=== PATIENT | male | born 1960 | race Caucasian/White ===

== ENCOUNTER → 2017-01-15 | Outpatient (CLI) | payer OTHER ==
[~2017-01-15] MED LIST: ACETAMINOPHEN PO; ALBUTEROL17 GM INH; AMOXICILLIN875 MG PO; ASPIRIN81 M1 PO; DOXYCYCLINE HY100 M1 PO; HYCODAN60 ML 5MG/ PO; HYDROCHLOROTHIA25 MG PO; LISINOPRIL10 MG PO; METFORMIN HCL500 M1 PO; NORCO 5/325 TAB1 TAB PO; PREDNISONE PO; SPIRIVA18 MCG INH; TYLOX1 CAP 5/50 PO; VASOTEC10 MG PO
--- NOTE | ~2017-01-15 | US77 ---
[facility] A Service of [facility] RADIOLOGY TEXT RESULTS PATIENT: MORRIS ALDRIDGE LOCATION: [facility] : 60 UNIT #: [id number] AGE: [address]: Quique Gagnon MD SEX: M ORDER DR: [id number] [address] [address] [id number] O MR#: [id number] Acc #: [id number] NAME: MORRIS ALDRIDGE : 1960 SEX: M STUDY DATE/TIME: 01/15/2017 15:22 UNIT: [facility] ROOM: STUDY DESCRIPTION: US Kidney Bilateral Complete Attending Physician: Quique Gagnon M.D. Referring Physician: Quique Gagnon M.D. Ordering Physician: Quique Gagnon M.D. Primary Care Physician: Socorro Rizzo M.D. MEDICAL IMAGING REPORT This report is preliminary unless electronic signature is present EXAM Renal ultrasound INDICATION Renal cell carcinoma post right nephrectomy. Bladder cancer diagnosed 2016. PROCEDURE Pascual-scale and Doppler imaging kidneys and bladder. COMPARISON None. FINDINGS Previous right nephrectomy. No obvious abnormal soft tissue in the right nephrectomy bed. Unremarkable bladder. Left kidney measures 13.1 cm and is normal. IMPRESSION 1. Previous right nephrectomy. 2. Normal appearance of the left kidney. Dictated by... Tk Gonzalez M.D. THIS IS AN ELECTRONICALLY VERIFIED REPORT Tk Gonzalez M.D. at 01/17/2017 6:52 AM EED/aa TD: 01/16/2017 10:28 JOB #: [id number] [facility] A Service [facility] RADIOLOGY TEXT RESULTS PATIENT: MORRIS ALDRIDGE LOCATION: [facility] : 60 UNIT #: [id number] AGE: [address]: Quique Gagnon MD SEX: M ORDER DR: MEDICAL IMAGING REPORT Page 1 of 1 COPY
--- NOTE | ~2017-01-15 | CR63 ---
[facility] A Service of [facility] RADIOLOGY TEXT RESULTS PATIENT: MORRIS ALDRIDGE LOCATION: [facility] : 60 UNIT #: [id number] AGE: [address]: Quique Gagnon MD SEX: M ORDER DR: [id number] [place] [address] [facility]. [place], [place] [address] [id number] O MR#: [id number] Acc #: [id number] NAME: MORRIS ALDRIDGE : 1960 SEX: M STUDY DATE/TIME: 01/15/2017 15:50 UNIT: [facility] ROOM: STUDY DESCRIPTION: CR Chest 2 View Attending Physician: Quique Gagnon M.D. Referring Physician: Quique Gagnon M.D. Ordering Physician: Quique Gagnon M.D. Primary Care Physician: Socorro Rizzo M.D. MEDICAL IMAGING REPORT This report is preliminary unless electronic signature is present EXAM Two-view chest, 01/15/2017 INDICATIONS A 56-year-old male with a history of renal malignancy, mid chest pain and right arm pain for 2 weeks. Tobacco abuse for years. TECHNIQUE Two views of the chest were performed. COMPARISON 09/26/2015 FINDINGS There is mild pulmonary hyperinflation. Cardiac silhouette within normal limits. Vascularity unremarkable. There is no effusion dense consolidation or pneumothorax. Mild thoracic spondylosis. IMPRESSION Mild pulmonary hyperinflation; otherwise, negative two-view chest. Dictated by... Yomi Mckeon M.D. THIS IS AN ELECTRONICALLY VERIFIED REPORT Yomi Mckeon M.D. at 01/16/2017 5:04 PM Faib TD: 01/16/2017 11:42 JOB #: [id number] [facility] A Service [facility] RADIOLOGY TEXT RESULTS PATIENT: MORRIS ALDRIDGE LOCATION: [facility] : 60 UNIT #: [id number] AGE: [address]: Quique Gagnon MD SEX: M ORDER DR: MEDICAL IMAGING REPORT Page 1 of 1 COPY
[2017-01-15 16:05] LABS: ALBUMIN SERUM 3.9 g/dL (3.5-5.0); BILIRUBIN,TOTAL 0.1 mg/dL (0.2-2.0); BUN/CREATININE RATIO 19.23; CALCIUM SERUM 8.9 mg/dL (8.4-10.2); CREATININE SERUM 1.3 mg/dL (0.6-1.4); POTASSIUM 4.6 mmol/L (3.5-5.1); PROTEIN TOTAL SERUM 6.8 g/dL (6.0-8.3)
== END | disposition home or self-care (01) ==
LOC: CGUS 14:55
PROVIDERS: Urology
DX: Z08 Encounter for follow-up examination after completed treatment for malignant neoplasm (principal); J98.4 Other disorders of lung; Z85.528 Personal history of other malignant neoplasm of kidney; Z90.5 Acquired absence of kidney
CPT/HCPCS: 36415; 71020; 76770; 80053

== ENCOUNTER 2017-06-21 14:09 | Emergency (ER) | payer OTHER ==
[~2017-06-21] VITALS: Ht 185.4 cm; Wt 130.6 kg
--- NOTE | ~2017-06-21 | CT4 ---
[facility] A Service of [facility] RADIOLOGY TEXT RESULTS PATIENT: MORRIS ALDRIDGE LOCATION: [facility] : 60 UNIT #: [id number] AGE: [address]: Regla Rose MD SEX: M ORDER DR: [id number] [facility] [address] [facility]. [place], [place] [address] [id number] P MR#: [id number] Acc #: [id number] NAME: MORIRS ALDRIDGE : 1960 SEX: M STUDY DATE/TIME: 06/21/2017 18:56 UNIT: [facility] ROOM: STUDY DESCRIPTION: CT Abd and Pelv Wo Cont Attending Physician: Regla Rose M.D. Ordering Physician: Regla Rose M.D. Primary Care Physician: Socorro Rizzo M.D. MEDICAL IMAGING REPORT This report is preliminary unless electronic signature is present EXAM CT of the abdomen and pelvis without contrast, 06/21/[address] of the abdomen and pelvis with and without contrast, 02/02/2016 HISTORY Abdominal and flank pain for 3 days. Pain radiates into the back on both sides. History of bladder and kidney cancer. TECHNIQUE CT of the abdomen and pelvis were obtained without IV or oral contrast in the axial plane followed by sagittal and coronal reformates. This CT exam was performed with one or more of the following radiation dose reduction techniques: automatic exposure control, adjustment of mA and/or kV according to patient size, and iterative reconstruction. FINDINGS LOWER CHEST: Lungs are well aerated. Heart is of normal size. ABDOMEN: There is focal area of ill-defined isodensity in the mid abdomen, in close proximity to the adjacent small bowel loop (duodenum) suspicious for mild inflammation. It is below the pancreatic head but the pancreas itself appears to be unremarkable. No significant lymphadenopathy, drainable abscess, free air or drainable free fluid is seen. There is a soft tissue nodule measuring 1.7 cm in the region of the splenic hilum suggestive of splenule. Lack of IV contrast limits evaluation of solid organs. Lack of oral contrast limits evaluation of the hollow organs. Minimal old oral contrast is noted in the region of the rectosigmoid colon. There is mild stool burden particularly in the right colon. Well defined appendix is difficult to visualize but there STS. [facility] A Service of [facility] RADIOLOGY TEXT RESULTS PATIENT: MORRIS ALDRIDGE LOCATION: [facility] : 60 UNIT #: [id number] AGE: [address]: Regla Rose MD SEX: M ORDER DR: are no signs of acute inflammation in the lower quadrants. Mild degenerative changes are noted in the spine. IMPRESSION 1. There is a 3.1 x 4.0 cm oval area of ill-defined density noted in the mid abdomen. It is in close proximity to the superior aspect of the third loop of duodenum in this region and it is noted below the region of head of the pancreas. The rest of the pancreas appears to be within normal limits. Possible early acute pancreatitis or duodenitis is in the differential consideration along with mesenteritis or mesenteric panniculitis. It was not seen in the prior CT abdomen from 1-1/2 years ago. 2. No drainable ascites, significant lymphadenopathy or significant thickening of the small bowel wall adjacent to the possible involved third part of the duodenum. Dictated by... John Lerma M.D. THIS IS AN ELECTRONICALLY VERIFIED REPORT John Lerma M.D. at 06/25/2017 10:00 PM PADDY/nataliya TD: 06/22/2017 15:58 JOB #: [id number] MEDICAL IMAGING REPORT Page 1 of 1 COPY
[2017-06-21 14:40] LABS: URINE SOURCE CLEAN CATCH
[2017-06-21 15:00] LABS: BASOPHIL# 0.1 X10e3 (0-0.3); BASOPHIL% 0.6 % (0-2.5); EOSINOPHIL# 0.1 X10e3 (0-0.7); EOSINOPHIL% 1.1 % (0.0-7.0); HEMATOCRIT 44.1 % (38.0-50.0); HEMOGLOBIN 14.8 gm/dL (13.0-16.0); LYMPHOCYTE# 2.1 X10e3 (1.0-3.5); LYMPHOCYTE% 16.2 % (17.0-45.0); MEAN CELL VOLUME 82.9 FL (83-96); MEAN CORPUSCULAR HEMOGLOBIN 27.8 PG (28-34); MEAN CORPUSCULAR HGB CONC 33.5 g/dL (30-36); MEAN PLATELET VOLUME 9.1 FL (6.5-11.5); MONOCYTE% 7.6 % (3.0-12.0); NEUTROPHIL# 9.5 X10e3 (1.5-7.1); NEUTROPHIL% 74.5 % (40-75); PLATELET COUNT 207 X10e3 (140-420); RED BLOOD COUNT 5.32 X10e (3.90-5.60); RED CELL DISTRIBUTION WIDTH 15.3 % (11.0-15.5); WHITE BLOOD COUNT 12.7 X10e3 (4.0-10.5)
[2017-06-21 15:04] LABS: URINE APPEARANCE CLEAR; URINE BILIRUBIN NEG (NEG); URINE BLOOD NEG (NEG); URINE COLOR YELLOW; URINE GLUCOSE 1000 MG/DL (NORM); URINE KETONE NEG (NEG); URINE LEUKOCYTE ESTERASE NEG (NEG); URINE NITRATE NEG (NEG); URINE PROTEIN NEG (NEG); URINE SPECIFIC GRAVITY 1.015 (1.003-1.035); URINE UROBILINOGEN NORM (NORM)
[2017-06-21 15:04] LABS: DIFF IND NO
[2017-06-21 15:06] LABS: CULTURE INDICATED? NO
[2017-06-21 15:23] LABS: BILIRUBIN, DIRECT 0.1 mg/dL (0.0-0.2); BILIRUBIN,INDIRECT 0.6 mg/dL (0.0-0.9); BILIRUBIN,TOTAL 0.7 mg/dL (0.2-2.0); BUN/CREATININE RATIO 15.45; CALCIUM SERUM 8.6 mg/dL (8.4-10.2); CREATININE SERUM 1.1 mg/dL (0.6-1.4); GLOM FILT RATE Estimated 74.1 mL/min (>60); POTASSIUM 4.3 mmol/L (3.5-5.1); PROTEIN TOTAL SERUM 7.4 g/dL (6.0-8.3)
== END 2017-06-21 20:10 | disposition home or self-care (01) ==
LOC: CED 14:09
DX: K29.80 Duodenitis without bleeding (principal); E11.9 Type 2 diabetes mellitus without complications; J44.9 Chronic obstructive pulmonary disease, unspecified; Z90.5 Acquired absence of kidney; Z98.890 Other specified postprocedural states; F17.210 Nicotine dependence, cigarettes, uncomplicated
CPT/HCPCS: 36415; 74176; 80048; 80076; 81003; 83690; 85025; 99284